=== PATIENT | male | born 1955 | race Caucasian/White ===

== ENCOUNTER 2021-08-12 12:56 | Inpatient (IN) ==
[2021-08-12] MEDS ORDERED: Nitroglycerin 0.4 MG TAB.SUBL SL PRN (13:30)
[2021-08-12] MEDS: Furosemide 20 MG TABLET PO SCH (15:50)
[2021-08-12] MEDS: Nicotine 21 MG PATCH.TD24 TD SCH (15:50)
[2021-08-12] MEDS: Metoprolol XL (24 HR) Succ 50 MG TAB.ER.24H PO SCH (20:04)
[2021-08-12] MEDS: *HR* Rivaroxaban 10 MG TABLET PO SCH (20:05)
[2021-08-13 06:23] LABS: Basophils # 0.1 K/mcL (0.0-0.2); Basophils % 0.9 %; Eosinophils # 0.1 K/mcL (0.0-0.6); Eosinophils % 1.5 %; Hemoglobin 14.6 g/dL (12.9-16.9); Immature Granulocytes % 0.4 % (0-4); Lymphocytes % 24.4 %; Mean Corpuscular HGB Conc 34.8 g/dL (31.6-35.5); Mean Corpuscular Hemoglobin 33.2 pg (28.0-33.3); Mean Corpuscular Volume 95.5 fL (83.0-100.0); Mean Platelet Volume 11.2 fL (9.4-12.4); Monocytes # 0.8 K/mcL (0.0-1.3); Monocytes % 9.5 %; Neutrophils # 5.1 K/mcL (1.6-8.9); Platelet Count 259 K/mcL (140-400); Red Cell Distribution Width 13.7 % (11.5-14.5); Segmented Neutrophils % 63.3 %
[2021-08-13 06:53] LABS: BUN/Creatinine Ratio 16 (6-26); Blood Urea Nitrogen 17 mg/dL (8-23); Calcium 8.5 mg/dL (8.6-10.3); Carbon Dioxide 23 mEq/L (23-29); Chloride 106 mEq/L (98-107); Glucose 103 mg/dL (70-105); Osmolality,Calculated 286 (280-300); Potassium 3.2 mEq/L (3.5-5.1); Sodium 137 mEq/L (136-145); eGFR For African Americans > 60 (> 60); eGFR For Non-African Americans > 60 (> 60)
[2021-08-13] MEDS: Furosemide 20 MG TABLET PO SCH (08:33)
[2021-08-13] MEDS: Vitamin B Complex/Vit C/Vit E 1 EACH TABLET PO SCH (08:34)
[2021-08-13] MEDS: FLUoxetine 20 MG CAPSULE PO SCH (08:34)
[2021-08-13] MEDS: Aspirin Enteric Coated 81 MG Tablet PO SCH (08:34)
[2021-08-13] MEDS: Folic Acid 1 MG TABLET PO SCH (08:34)
[2021-08-13] MEDS: Thiamine (B-1) 100 MG TABLET PO SCH (08:34)
[2021-08-13] MEDS: Nicotine 21 MG PATCH.TD24 TD SCH ×2 (08:34→09:17)
[2021-08-13] MEDS: Metoprolol XL (24 HR) Succ 50 MG TAB.ER.24H PO SCH ×2 (08:34→20:41)
[2021-08-13] MEDS: Cholecalciferol (D-3) 1,000 UNIT (25MCG) TABLET PO SCH (08:34)
[2021-08-13] MEDS: Isosorbide MONOnitrate (24 HR) 60 MG TAB.ER.24H PO SCH (08:34)
[2021-08-13] MEDS: *HR* Rivaroxaban 10 MG TABLET PO SCH (20:42)
[2021-08-14] MEDS: Furosemide 20 MG TABLET PO SCH (08:23)
[2021-08-14] MEDS: Thiamine (B-1) 100 MG TABLET PO SCH (08:23)
[2021-08-14] MEDS: Vitamin B Complex/Vit C/Vit E 1 EACH TABLET PO SCH (08:23)
[2021-08-14] MEDS: Aspirin Enteric Coated 81 MG Tablet PO SCH (08:23)
[2021-08-14] MEDS: Cholecalciferol (D-3) 1,000 UNIT (25MCG) TABLET PO SCH (08:23)
[2021-08-14] MEDS: Isosorbide MONOnitrate (24 HR) 60 MG TAB.ER.24H PO SCH (08:23)
[2021-08-14] MEDS: Folic Acid 1 MG TABLET PO SCH (08:24)
[2021-08-14] MEDS: Nicotine 21 MG PATCH.TD24 TD SCH (08:24)
[2021-08-14] MEDS: Metoprolol XL (24 HR) Succ 50 MG TAB.ER.24H PO SCH ×2 (08:24→21:02)
[2021-08-14] MEDS: FLUoxetine 20 MG CAPSULE PO SCH (08:24)
[2021-08-14] MEDS: *HR* Rivaroxaban 10 MG TABLET PO SCH (21:02)
[2021-08-15 05:15] LABS: Basophils # 0.1 K/mcL (0.0-0.2); Basophils % 0.8 %; Eosinophils # 0.2 K/mcL (0.0-0.6); Eosinophils % 1.9 %; Hematocrit 42.4 % (37.5-50.1); Hemoglobin 14.3 g/dL (12.9-16.9); Immature Granulocytes % 0.2 % (0-4); Lymphocytes % 24.2 %; Mean Corpuscular HGB Conc 33.7 g/dL (31.6-35.5); Mean Corpuscular Hemoglobin 32.5 pg (28.0-33.3); Mean Corpuscular Volume 96.4 fL (83.0-100.0); Mean Platelet Volume 11.2 fL (9.4-12.4); Monocytes # 0.8 K/mcL (0.0-1.3); Monocytes % 9.6 %; Neutrophils # 5.3 K/mcL (1.6-8.9); Platelet Count 248 K/mcL (140-400); Red Cell Distribution Width 13.6 % (11.5-14.5); Segmented Neutrophils % 63.3 %; White Blood Count 8.3 K/mcL (4.3-11.1)
[2021-08-15 05:33] LABS: Alanine Aminotransferase 28 Units/L (7-52); Albumin 3.4 g/dL (3.5-5.7); Albumin/Globulin Ratio 1.2 (1.1-2.2); Alkaline Phosphatase 105 Units/L (34-104); Aspartate Amino Transferase 24 Units/L (13-39); BUN/Creatinine Ratio 15 (6-26); Bilirubin,Total 0.8 mg/dL (0.3-1.0); Blood Urea Nitrogen 16 mg/dL (8-23); Calcium 8.7 mg/dL (8.6-10.3); Carbon Dioxide 25 mEq/L (23-29); Chloride 107 mEq/L (98-107); Globulin 2.9 g/dL (2.4-3.5); Glucose 97 mg/dL (70-105); Osmolality,Calculated 289 (280-300); Potassium 3.6 mEq/L (3.5-5.1); Sodium 139 mEq/L (136-145); Total Protein 6.3 g/dL (6.4-8.9); eGFR For African Americans > 60 (> 60); eGFR For Non-African Americans > 60 (> 60)
[2021-08-15] MEDS: Cholecalciferol (D-3) 1,000 UNIT (25MCG) TABLET PO SCH (08:44)
[2021-08-15] MEDS: FLUoxetine 20 MG CAPSULE PO SCH (08:44)
[2021-08-15] MEDS: Vitamin B Complex/Vit C/Vit E 1 EACH TABLET PO SCH (08:44)
[2021-08-15] MEDS: Metoprolol XL (24 HR) Succ 50 MG TAB.ER.24H PO SCH ×2 (08:44→20:06)
[2021-08-15] MEDS: Folic Acid 1 MG TABLET PO SCH (08:44)
[2021-08-15] MEDS: Isosorbide MONOnitrate (24 HR) 60 MG TAB.ER.24H PO SCH (08:44)
[2021-08-15] MEDS: Aspirin Enteric Coated 81 MG Tablet PO SCH (08:44)
[2021-08-15] MEDS: Furosemide 20 MG TABLET PO SCH (08:45)
[2021-08-15] MEDS: Thiamine (B-1) 100 MG TABLET PO SCH (08:45)
[2021-08-15] MEDS: Nicotine 21 MG PATCH.TD24 TD SCH (08:45)
[2021-08-15] MEDS: *HR* Rivaroxaban 10 MG TABLET PO SCH (20:06)
[2021-08-16] MEDS: Vitamin B Complex/Vit C/Vit E 1 EACH TABLET PO SCH (08:26)
[2021-08-16] MEDS: Furosemide 20 MG TABLET PO SCH (08:26)
[2021-08-16] MEDS: FLUoxetine 20 MG CAPSULE PO SCH (08:26)
[2021-08-16] MEDS: Thiamine (B-1) 100 MG TABLET PO SCH (08:26)
[2021-08-16] MEDS: Isosorbide MONOnitrate (24 HR) 60 MG TAB.ER.24H PO SCH (08:26)
[2021-08-16] MEDS: Aspirin Enteric Coated 81 MG Tablet PO SCH (08:26)
[2021-08-16] MEDS: Folic Acid 1 MG TABLET PO SCH (08:27)
[2021-08-16] MEDS: Metoprolol XL (24 HR) Succ 50 MG TAB.ER.24H PO SCH ×2 (08:27→20:28)
[2021-08-16] MEDS: Cholecalciferol (D-3) 1,000 UNIT (25MCG) TABLET PO SCH (08:27)
[2021-08-16] MEDS: Nicotine 21 MG PATCH.TD24 TD SCH (08:27)
[2021-08-16] MEDS: *HR* HYDROcodone/Acet 5/325 mg TABLET PO PRN ×2 (11:10→20:30)
[2021-08-16] MEDS: *HR* Rivaroxaban 10 MG TABLET PO SCH (20:28)
[2021-08-17] MEDS: FLUoxetine 20 MG CAPSULE PO SCH (07:37)
[2021-08-17] MEDS: Aspirin Enteric Coated 81 MG Tablet PO SCH (07:37)
[2021-08-17] MEDS: Furosemide 20 MG TABLET PO SCH (07:37)
[2021-08-17] MEDS: Thiamine (B-1) 100 MG TABLET PO SCH (07:37)
[2021-08-17] MEDS: Isosorbide MONOnitrate (24 HR) 60 MG TAB.ER.24H PO SCH (07:37)
[2021-08-17] MEDS: Cholecalciferol (D-3) 1,000 UNIT (25MCG) TABLET PO SCH (07:37)
[2021-08-17] MEDS: Vitamin B Complex/Vit C/Vit E 1 EACH TABLET PO SCH (07:37)
[2021-08-17] MEDS: Metoprolol XL (24 HR) Succ 50 MG TAB.ER.24H PO SCH ×2 (07:38→20:24)
[2021-08-17] MEDS: Folic Acid 1 MG TABLET PO SCH (07:38)
[2021-08-17] MEDS: Nicotine 21 MG PATCH.TD24 TD SCH (12:06)
[2021-08-17] MEDS: *HR* HYDROcodone/Acet 5/325 mg TABLET PO PRN (14:43)
[2021-08-17] MEDS: *HR* Rivaroxaban 10 MG TABLET PO SCH (20:24)
[2021-08-18] MEDS: Metoprolol XL (24 HR) Succ 50 MG TAB.ER.24H PO SCH ×2 (08:33→20:46)
[2021-08-18] MEDS: Cholecalciferol (D-3) 1,000 UNIT (25MCG) TABLET PO SCH (08:33)
[2021-08-18] MEDS: Isosorbide MONOnitrate (24 HR) 60 MG TAB.ER.24H PO SCH (08:33)
[2021-08-18] MEDS: Vitamin B Complex/Vit C/Vit E 1 EACH TABLET PO SCH (08:34)
[2021-08-18] MEDS: Aspirin Enteric Coated 81 MG Tablet PO SCH (08:34)
[2021-08-18] MEDS: FLUoxetine 20 MG CAPSULE PO SCH (08:34)
[2021-08-18] MEDS: Furosemide 20 MG TABLET PO SCH (08:34)
[2021-08-18] MEDS: Nicotine 21 MG PATCH.TD24 TD SCH (08:34)
[2021-08-18] MEDS: Folic Acid 1 MG TABLET PO SCH (08:34)
[2021-08-18] MEDS: Thiamine (B-1) 100 MG TABLET PO SCH (08:34)
[2021-08-18] MEDS: *HR* HYDROcodone/Acet 5/325 mg TABLET PO PRN (10:56)
[2021-08-18] MEDS: Sennosides/Docusate Sodium TABLET PO SCH ×2 (12:39→20:46)
[2021-08-18] MEDS: polyethylene glycoL 3350 17 GM POWD.PACK PO SCH (14:43)
[2021-08-18] MEDS: *HR* Rivaroxaban 10 MG TABLET PO SCH (20:46)
[2021-08-19 06:01] LABS: Hematocrit 40.2 % (37.5-50.1); Hemoglobin 13.7 g/dL (12.9-16.9); Mean Corpuscular HGB Conc 34.1 g/dL (31.6-35.5); Mean Corpuscular Hemoglobin 32.8 pg (28.0-33.3); Mean Corpuscular Volume 96.2 fL (83.0-100.0); Mean Platelet Volume 10.9 fL (9.4-12.4); Platelet Count 228 K/mcL (140-400); Red Blood Count 4.18 M/mcL (4.19-5.50); Red Cell Distribution Width 13.7 % (11.5-14.5); White Blood Count 9.2 K/mcL (4.3-11.1)
[2021-08-19 06:23] LABS: Alanine Aminotransferase 24 Units/L (7-52); Albumin 3.3 g/dL (3.5-5.7); Albumin/Globulin Ratio 1.1 (1.1-2.2); Alkaline Phosphatase 90 Units/L (34-104); Aspartate Amino Transferase 15 Units/L (13-39); BUN/Creatinine Ratio 18 (6-26); Bilirubin,Total 0.5 mg/dL (0.3-1.0); Blood Urea Nitrogen 18 mg/dL (8-23); Calcium 8.7 mg/dL (8.6-10.3); Carbon Dioxide 25 mEq/L (23-29); Chloride 107 mEq/L (98-107); Globulin 3.1 g/dL (2.4-3.5); Glucose 110 mg/dL (70-105); Osmolality,Calculated 295 (280-300); Potassium 3.4 mEq/L (3.5-5.1); Sodium 141 mEq/L (136-145); Total Protein 6.4 g/dL (6.4-8.9); eGFR For African Americans > 60 (> 60); eGFR For Non-African Americans > 60 (> 60)
[2021-08-19] MEDS: Vitamin B Complex/Vit C/Vit E 1 EACH TABLET PO SCH (08:19)
[2021-08-19] MEDS: Isosorbide MONOnitrate (24 HR) 60 MG TAB.ER.24H PO SCH (08:19)
[2021-08-19] MEDS: Furosemide 20 MG TABLET PO SCH (08:19)
[2021-08-19] MEDS: Thiamine (B-1) 100 MG TABLET PO SCH (08:19)
[2021-08-19] MEDS: Aspirin Enteric Coated 81 MG Tablet PO SCH (08:19)
[2021-08-19] MEDS: Cholecalciferol (D-3) 1,000 UNIT (25MCG) TABLET PO SCH (08:19)
[2021-08-19] MEDS: Sennosides/Docusate Sodium TABLET PO SCH ×2 (08:19→20:54)
[2021-08-19] MEDS: Metoprolol XL (24 HR) Succ 50 MG TAB.ER.24H PO SCH ×2 (08:19→20:54)
[2021-08-19] MEDS: FLUoxetine 20 MG CAPSULE PO SCH (08:19)
[2021-08-19] MEDS: Folic Acid 1 MG TABLET PO SCH (08:20)
[2021-08-19] MEDS: Nicotine 21 MG PATCH.TD24 TD SCH (08:20)
[2021-08-19] MEDS: polyethylene glycoL 3350 17 GM POWD.PACK PO SCH (08:20)
[2021-08-19] MEDS: *HR* Rivaroxaban 10 MG TABLET PO SCH (20:53)
[2021-08-20] MEDS: Vitamin B Complex/Vit C/Vit E 1 EACH TABLET PO SCH (09:05)
[2021-08-20] MEDS: Aspirin Enteric Coated 81 MG Tablet PO SCH (09:05)
[2021-08-20] MEDS: Thiamine (B-1) 100 MG TABLET PO SCH (09:05)
[2021-08-20] MEDS: Cholecalciferol (D-3) 1,000 UNIT (25MCG) TABLET PO SCH (09:05)
[2021-08-20] MEDS: FLUoxetine 20 MG CAPSULE PO SCH (09:05)
[2021-08-20] MEDS: Folic Acid 1 MG TABLET PO SCH (09:05)
[2021-08-20] MEDS: Nicotine 21 MG PATCH.TD24 TD SCH (09:06)
[2021-08-20] MEDS: Furosemide 20 MG TABLET PO SCH (09:06)
[2021-08-20] MEDS: Sennosides/Docusate Sodium TABLET PO SCH ×2 (09:06→20:22)
[2021-08-20] MEDS: polyethylene glycoL 3350 17 GM POWD.PACK PO SCH (09:06)
[2021-08-20] MEDS: Isosorbide MONOnitrate (24 HR) 60 MG TAB.ER.24H PO SCH (09:13)
[2021-08-20] MEDS: Metoprolol XL (24 HR) Succ 50 MG TAB.ER.24H PO SCH ×2 (09:13→20:21)
[2021-08-20] MEDS: *HR* Rivaroxaban 10 MG TABLET PO SCH (20:22)
[2021-08-20 23:04] LABS: Bilirubin,Urine Negative (Negative); Blood,Urine Trace-intact (Negative); Clarity,Urine Clear (Clear); Color,Urine Yellow (Yellow); Glucose,Urine (UA) Normal (Normal); Ketones,Urine Trace mg/dL (Negative); Leukocyte Esterase,Urine Negative (Negative); Nitrite,Urine Negative (Negative); PH,Urine 5.5 pH Units (5.0-8.0); Protein,Urine Negative (Neg-Trace); Urobilinogen,Urine Normal (Normal)
[2021-08-21] MEDS: Metoprolol XL (24 HR) Succ 50 MG TAB.ER.24H PO SCH ×2 (08:32→21:26)
[2021-08-21] MEDS: FLUoxetine 20 MG CAPSULE PO SCH (08:32)
[2021-08-21] MEDS: Cholecalciferol (D-3) 1,000 UNIT (25MCG) TABLET PO SCH (08:32)
[2021-08-21] MEDS: Thiamine (B-1) 100 MG TABLET PO SCH (08:33)
[2021-08-21] MEDS: Sennosides/Docusate Sodium TABLET PO SCH ×2 (08:33→21:26)
[2021-08-21] MEDS: Isosorbide MONOnitrate (24 HR) 60 MG TAB.ER.24H PO SCH (08:33)
[2021-08-21] MEDS: Furosemide 20 MG TABLET PO SCH (08:33)
[2021-08-21] MEDS: Aspirin Enteric Coated 81 MG Tablet PO SCH (08:34)
[2021-08-21] MEDS: Nicotine 21 MG PATCH.TD24 TD SCH (08:34)
[2021-08-21] MEDS: Vitamin B Complex/Vit C/Vit E 1 EACH TABLET PO SCH (08:34)
[2021-08-21] MEDS: polyethylene glycoL 3350 17 GM POWD.PACK PO SCH (08:34)
[2021-08-21] MEDS: Folic Acid 1 MG TABLET PO SCH (08:34)
[2021-08-21] MEDS: *HR* Rivaroxaban 10 MG TABLET PO SCH (21:26)
[2021-08-22 04:58] LABS: Hematocrit 40.5 % (37.5-50.1); Hemoglobin 13.7 g/dL (12.9-16.9); Mean Corpuscular HGB Conc 33.8 g/dL (31.6-35.5); Mean Corpuscular Hemoglobin 32.3 pg (28.0-33.3); Mean Corpuscular Volume 95.5 fL (83.0-100.0); Mean Platelet Volume 10.7 fL (9.4-12.4); Platelet Count 227 K/mcL (140-400); Red Blood Count 4.24 M/mcL (4.19-5.50); Red Cell Distribution Width 13.4 % (11.5-14.5); White Blood Count 9.3 K/mcL (4.3-11.1)
[2021-08-22 05:18] LABS: BUN/Creatinine Ratio 17 (6-26); Blood Urea Nitrogen 17 mg/dL (8-23); Calcium 9.1 mg/dL (8.6-10.3); Carbon Dioxide 27 mEq/L (23-29); Chloride 103 mEq/L (98-107); Glucose 110 mg/dL (70-105); Magnesium 2.4 mg/dL (1.6-2.6); Osmolality,Calculated 286 (280-300); Potassium 3.8 mEq/L (3.5-5.1); Sodium 137 mEq/L (136-145); eGFR For African Americans > 60 (> 60); eGFR For Non-African Americans > 60 (> 60)
[2021-08-22] MEDS: Folic Acid 1 MG TABLET PO SCH (07:50)
[2021-08-22] MEDS: Furosemide 20 MG TABLET PO SCH (07:51)
[2021-08-22] MEDS: FLUoxetine 20 MG CAPSULE PO SCH (07:51)
[2021-08-22] MEDS: Sennosides/Docusate Sodium TABLET PO SCH ×2 (07:51→20:39)
[2021-08-22] MEDS: Aspirin Enteric Coated 81 MG Tablet PO SCH (07:51)
[2021-08-22] MEDS: Metoprolol XL (24 HR) Succ 50 MG TAB.ER.24H PO SCH ×2 (07:51→20:39)
[2021-08-22] MEDS: Vitamin B Complex/Vit C/Vit E 1 EACH TABLET PO SCH (07:51)
[2021-08-22] MEDS: Cholecalciferol (D-3) 1,000 UNIT (25MCG) TABLET PO SCH (07:51)
[2021-08-22] MEDS: Isosorbide MONOnitrate (24 HR) 60 MG TAB.ER.24H PO SCH (07:51)
[2021-08-22] MEDS: polyethylene glycoL 3350 17 GM POWD.PACK PO SCH (07:52)
[2021-08-22] MEDS: Nicotine 21 MG PATCH.TD24 TD SCH (07:52)
[2021-08-22] MEDS: Thiamine (B-1) 100 MG TABLET PO SCH (07:52)
[2021-08-22] MEDS: *HR* Rivaroxaban 10 MG TABLET PO SCH (20:39)
[2021-08-23] MEDS: Aspirin Enteric Coated 81 MG Tablet PO SCH (07:43)
[2021-08-23] MEDS: FLUoxetine 20 MG CAPSULE PO SCH (07:43)
[2021-08-23] MEDS: Furosemide 20 MG TABLET PO SCH (07:43)
[2021-08-23] MEDS: Metoprolol XL (24 HR) Succ 50 MG TAB.ER.24H PO SCH ×2 (07:43→21:25)
[2021-08-23] MEDS: Folic Acid 1 MG TABLET PO SCH (07:43)
[2021-08-23] MEDS: Vitamin B Complex/Vit C/Vit E 1 EACH TABLET PO SCH (07:43)
[2021-08-23] MEDS: Thiamine (B-1) 100 MG TABLET PO SCH (07:43)
[2021-08-23] MEDS: Cholecalciferol (D-3) 1,000 UNIT (25MCG) TABLET PO SCH (07:43)
[2021-08-23] MEDS: Isosorbide MONOnitrate (24 HR) 60 MG TAB.ER.24H PO SCH (07:43)
[2021-08-23] MEDS: Sennosides/Docusate Sodium TABLET PO SCH ×2 (07:43→21:26)
[2021-08-23] MEDS: Nicotine 21 MG PATCH.TD24 TD SCH (10:30)
[2021-08-23] MEDS: polyethylene glycoL 3350 17 GM POWD.PACK PO SCH (10:30)
[2021-08-23] MEDS: *HR* Rivaroxaban 10 MG TABLET PO SCH (21:26)
[2021-08-24] MEDS: polyethylene glycoL 3350 17 GM POWD.PACK PO SCH (07:58)
[2021-08-24] MEDS: Furosemide 20 MG TABLET PO SCH (07:58)
[2021-08-24] MEDS: Vitamin B Complex/Vit C/Vit E 1 EACH TABLET PO SCH (07:59)
[2021-08-24] MEDS: Metoprolol XL (24 HR) Succ 50 MG TAB.ER.24H PO SCH ×2 (07:59→21:27)
[2021-08-24] MEDS: Cholecalciferol (D-3) 1,000 UNIT (25MCG) TABLET PO SCH (07:59)
[2021-08-24] MEDS: Sennosides/Docusate Sodium TABLET PO SCH ×2 (07:59→21:26)
[2021-08-24] MEDS: Aspirin Enteric Coated 81 MG Tablet PO SCH (07:59)
[2021-08-24] MEDS: Folic Acid 1 MG TABLET PO SCH (07:59)
[2021-08-24] MEDS: Thiamine (B-1) 100 MG TABLET PO SCH (07:59)
[2021-08-24] MEDS: Nicotine 21 MG PATCH.TD24 TD SCH (07:59)
[2021-08-24] MEDS: Isosorbide MONOnitrate (24 HR) 60 MG TAB.ER.24H PO SCH (07:59)
[2021-08-24] MEDS: FLUoxetine 20 MG CAPSULE PO SCH (07:59)
[2021-08-24] MEDS: *HR* Rivaroxaban 10 MG TABLET PO SCH (21:27)
[2021-08-25] MEDS: Nicotine 21 MG PATCH.TD24 TD SCH (09:44)
[2021-08-25] MEDS: Vitamin B Complex/Vit C/Vit E 1 EACH TABLET PO SCH (09:45)
[2021-08-25] MEDS: FLUoxetine 20 MG CAPSULE PO SCH (09:45)
[2021-08-25] MEDS: Isosorbide MONOnitrate (24 HR) 60 MG TAB.ER.24H PO SCH (09:45)
[2021-08-25] MEDS: Cholecalciferol (D-3) 1,000 UNIT (25MCG) TABLET PO SCH (09:45)
[2021-08-25] MEDS: polyethylene glycoL 3350 17 GM POWD.PACK PO SCH (09:45)
[2021-08-25] MEDS: Folic Acid 1 MG TABLET PO SCH (09:45)
[2021-08-25] MEDS: Thiamine (B-1) 100 MG TABLET PO SCH (09:45)
[2021-08-25] MEDS: Metoprolol XL (24 HR) Succ 50 MG TAB.ER.24H PO SCH ×2 (09:45→21:26)
[2021-08-25] MEDS: Furosemide 20 MG TABLET PO SCH (09:45)
[2021-08-25] MEDS: Sennosides/Docusate Sodium TABLET PO SCH ×2 (09:45→21:16)
[2021-08-25] MEDS: Aspirin Enteric Coated 81 MG Tablet PO SCH (09:45)
[2021-08-25] MEDS: *HR* Rivaroxaban 10 MG TABLET PO SCH (21:16)
[2021-08-26] MEDS: polyethylene glycoL 3350 17 GM POWD.PACK PO SCH (09:31)
[2021-08-26] MEDS: Cholecalciferol (D-3) 1,000 UNIT (25MCG) TABLET PO SCH (09:31)
[2021-08-26] MEDS: Isosorbide MONOnitrate (24 HR) 60 MG TAB.ER.24H PO SCH (09:32)
[2021-08-26] MEDS: Vitamin B Complex/Vit C/Vit E 1 EACH TABLET PO SCH (09:32)
[2021-08-26] MEDS: Metoprolol XL (24 HR) Succ 50 MG TAB.ER.24H PO SCH ×2 (09:32→21:24)
[2021-08-26] MEDS: Furosemide 20 MG TABLET PO SCH (09:32)
[2021-08-26] MEDS: Thiamine (B-1) 100 MG TABLET PO SCH (09:32)
[2021-08-26] MEDS: Sennosides/Docusate Sodium TABLET PO SCH ×2 (09:33→21:24)
[2021-08-26] MEDS: Aspirin Enteric Coated 81 MG Tablet PO SCH (09:33)
[2021-08-26] MEDS: Folic Acid 1 MG TABLET PO SCH (09:33)
[2021-08-26] MEDS: FLUoxetine 20 MG CAPSULE PO SCH (09:33)
[2021-08-26] MEDS: Nicotine 21 MG PATCH.TD24 TD SCH (09:34)
[2021-08-26] MEDS: *HR* Rivaroxaban 10 MG TABLET PO SCH (21:24)
[2021-08-27 06:02] LABS: Hematocrit 40.3 % (37.5-50.1); Hemoglobin 13.5 g/dL (12.9-16.9); Mean Corpuscular HGB Conc 33.5 g/dL (31.6-35.5); Mean Corpuscular Hemoglobin 32.5 pg (28.0-33.3); Mean Corpuscular Volume 96.9 fL (83.0-100.0); Platelet Count 277 K/mcL (140-400); Red Blood Count 4.16 M/mcL (4.19-5.50); Red Cell Distribution Width 13.2 % (11.5-14.5)
[2021-08-27 06:25] LABS: Alanine Aminotransferase 26 Units/L (7-52); Albumin 3.1 g/dL (3.5-5.7); Albumin/Globulin Ratio 0.9 (1.1-2.2); Alkaline Phosphatase 79 Units/L (34-104); Aspartate Amino Transferase 19 Units/L (13-39); BUN/Creatinine Ratio 21 (6-26); Bilirubin,Total 0.5 mg/dL (0.3-1.0); Blood Urea Nitrogen 21 mg/dL (8-23); Calcium 9.4 mg/dL (8.6-10.3); Carbon Dioxide 27 mEq/L (23-29); Chloride 102 mEq/L (98-107); Globulin 3.4 g/dL (2.4-3.5); Glucose 105 mg/dL (70-105); Osmolality,Calculated 289 (280-300); Sodium 138 mEq/L (136-145); Total Protein 6.5 g/dL (6.4-8.9); eGFR For African Americans > 60 (> 60); eGFR For Non-African Americans > 60 (> 60)
[2021-08-27] MEDS: Aspirin Enteric Coated 81 MG Tablet PO SCH (08:14)
[2021-08-27] MEDS: Cholecalciferol (D-3) 1,000 UNIT (25MCG) TABLET PO SCH (08:14)
[2021-08-27] MEDS: Metoprolol XL (24 HR) Succ 50 MG TAB.ER.24H PO SCH ×2 (08:15→20:43)
[2021-08-27] MEDS: FLUoxetine 20 MG CAPSULE PO SCH (08:15)
[2021-08-27] MEDS: Thiamine (B-1) 100 MG TABLET PO SCH (08:15)
[2021-08-27] MEDS: Isosorbide MONOnitrate (24 HR) 60 MG TAB.ER.24H PO SCH (08:15)
[2021-08-27] MEDS: polyethylene glycoL 3350 17 GM POWD.PACK PO SCH (08:16)
[2021-08-27] MEDS: Folic Acid 1 MG TABLET PO SCH (08:16)
[2021-08-27] MEDS: Furosemide 20 MG TABLET PO SCH (08:16)
[2021-08-27] MEDS: Sennosides/Docusate Sodium TABLET PO SCH ×2 (08:16→20:35)
[2021-08-27] MEDS: Vitamin B Complex/Vit C/Vit E 1 EACH TABLET PO SCH (08:16)
[2021-08-27] MEDS: Nicotine 21 MG PATCH.TD24 TD SCH (08:16)
[2021-08-27] MEDS: Nystatin POWDER 30 GM BOTTLE TP SCH ×2 (15:35→20:43)
[2021-08-27] MEDS: *HR* HYDROcodone/Acet 5/325 mg TABLET PO PRN (20:43)
[2021-08-27] MEDS: *HR* Rivaroxaban 10 MG TABLET PO SCH (20:43)
[2021-08-28] MEDS: Furosemide 20 MG TABLET PO SCH (08:41)
[2021-08-28] MEDS: Thiamine (B-1) 100 MG TABLET PO SCH (08:41)
[2021-08-28] MEDS: Aspirin Enteric Coated 81 MG Tablet PO SCH (08:41)
[2021-08-28] MEDS: Cholecalciferol (D-3) 1,000 UNIT (25MCG) TABLET PO SCH (08:41)
[2021-08-28] MEDS: Vitamin B Complex/Vit C/Vit E 1 EACH TABLET PO SCH (08:41)
[2021-08-28] MEDS: Isosorbide MONOnitrate (24 HR) 60 MG TAB.ER.24H PO SCH (08:41)
[2021-08-28] MEDS: FLUoxetine 20 MG CAPSULE PO SCH (08:42)
[2021-08-28] MEDS: Folic Acid 1 MG TABLET PO SCH (08:42)
[2021-08-28] MEDS: Nicotine 21 MG PATCH.TD24 TD SCH (08:42)
[2021-08-28] MEDS: polyethylene glycoL 3350 17 GM POWD.PACK PO SCH (08:42)
[2021-08-28] MEDS: Metoprolol XL (24 HR) Succ 50 MG TAB.ER.24H PO SCH ×2 (08:42→19:16)
[2021-08-28] MEDS: Sennosides/Docusate Sodium TABLET PO SCH ×2 (08:42→19:15)
[2021-08-28] MEDS: Nystatin POWDER 30 GM BOTTLE TP SCH (08:43)
[2021-08-28] MEDS ORDERED: Clotrimazole 1% CRM 15 GM TUBE TP SCH (14:30)
[2021-08-28] MEDS ORDERED: Nystatin POWDER 30 GM BOTTLE TP SCH (15:00)
[2021-08-28] MEDS: Clotrimazole 1% CRM 15 GM TUBE TP SCH ×2 (16:09→19:16)
[2021-08-28] MEDS: *HR* HYDROcodone/Acet 5/325 mg TABLET PO PRN (19:16)
[2021-08-28] MEDS: *HR* Rivaroxaban 10 MG TABLET PO SCH (19:16)
[2021-08-29] MEDS: Sennosides/Docusate Sodium TABLET PO SCH ×2 (08:32→19:59)
[2021-08-29] MEDS: Aspirin Enteric Coated 81 MG Tablet PO SCH (08:32)
[2021-08-29] MEDS: Folic Acid 1 MG TABLET PO SCH (08:33)
[2021-08-29] MEDS: Vitamin B Complex/Vit C/Vit E 1 EACH TABLET PO SCH (08:33)
[2021-08-29] MEDS: Isosorbide MONOnitrate (24 HR) 60 MG TAB.ER.24H PO SCH (08:33)
[2021-08-29] MEDS: Thiamine (B-1) 100 MG TABLET PO SCH (08:33)
[2021-08-29] MEDS: FLUoxetine 20 MG CAPSULE PO SCH (08:33)
[2021-08-29] MEDS: Metoprolol XL (24 HR) Succ 50 MG TAB.ER.24H PO SCH ×2 (08:33→19:58)
[2021-08-29] MEDS: Furosemide 20 MG TABLET PO SCH (08:33)
[2021-08-29] MEDS: Clotrimazole 1% CRM 15 GM TUBE TP SCH ×2 (08:34→20:00)
[2021-08-29] MEDS: polyethylene glycoL 3350 17 GM POWD.PACK PO SCH (08:34)
[2021-08-29] MEDS: Nicotine 21 MG PATCH.TD24 TD SCH (08:34)
[2021-08-29] MEDS: Cholecalciferol (D-3) 1,000 UNIT (25MCG) TABLET PO SCH (08:34)
[2021-08-29] MEDS: *HR* Rivaroxaban 10 MG TABLET PO SCH (19:59)
[2021-08-29] MEDS: *HR* HYDROcodone/Acet 5/325 mg TABLET PO PRN (19:59)
[2021-08-30] MEDS: Cholecalciferol (D-3) 1,000 UNIT (25MCG) TABLET PO SCH (09:43)
[2021-08-30] MEDS: Aspirin Enteric Coated 81 MG Tablet PO SCH (09:43)
[2021-08-30] MEDS: Vitamin B Complex/Vit C/Vit E 1 EACH TABLET PO SCH (09:43)
[2021-08-30] MEDS: Thiamine (B-1) 100 MG TABLET PO SCH (09:44)
[2021-08-30] MEDS: Isosorbide MONOnitrate (24 HR) 60 MG TAB.ER.24H PO SCH (09:44)
[2021-08-30] MEDS: Folic Acid 1 MG TABLET PO SCH (09:44)
[2021-08-30] MEDS: Furosemide 20 MG TABLET PO SCH (09:44)
[2021-08-30] MEDS: Metoprolol XL (24 HR) Succ 50 MG TAB.ER.24H PO SCH ×2 (09:45→22:56)
[2021-08-30] MEDS: Sennosides/Docusate Sodium TABLET PO SCH ×2 (09:45→22:57)
[2021-08-30] MEDS: FLUoxetine 20 MG CAPSULE PO SCH (09:45)
[2021-08-30] MEDS: Clotrimazole 1% CRM 15 GM TUBE TP SCH ×2 (09:45→22:57)
[2021-08-30] MEDS: Nicotine 21 MG PATCH.TD24 TD SCH (09:45)
[2021-08-30] MEDS: polyethylene glycoL 3350 17 GM POWD.PACK PO SCH (09:45)
[2021-08-30] MEDS: *HR* Rivaroxaban 10 MG TABLET PO SCH (22:57)
[2021-08-31] MEDS: Isosorbide MONOnitrate (24 HR) 60 MG TAB.ER.24H PO SCH (08:55)
[2021-08-31] MEDS: Metoprolol XL (24 HR) Succ 50 MG TAB.ER.24H PO SCH ×2 (08:56→20:50)
[2021-08-31] MEDS: Aspirin Enteric Coated 81 MG Tablet PO SCH (08:56)
[2021-08-31] MEDS: Clotrimazole 1% CRM 15 GM TUBE TP SCH ×2 (08:56→20:51)
[2021-08-31] MEDS: FLUoxetine 20 MG CAPSULE PO SCH (08:56)
[2021-08-31] MEDS: Furosemide 20 MG TABLET PO SCH (08:56)
[2021-08-31] MEDS: Nicotine 21 MG PATCH.TD24 TD SCH (08:56)
[2021-08-31] MEDS: Folic Acid 1 MG TABLET PO SCH (08:56)
[2021-08-31] MEDS: Vitamin B Complex/Vit C/Vit E 1 EACH TABLET PO SCH (08:56)
[2021-08-31] MEDS: Sennosides/Docusate Sodium TABLET PO SCH ×2 (08:56→20:49)
[2021-08-31] MEDS: Thiamine (B-1) 100 MG TABLET PO SCH (08:56)
[2021-08-31] MEDS: Cholecalciferol (D-3) 1,000 UNIT (25MCG) TABLET PO SCH (08:56)
[2021-08-31] MEDS: polyethylene glycoL 3350 17 GM POWD.PACK PO SCH (08:57)
[2021-08-31] MEDS: *HR* Rivaroxaban 10 MG TABLET PO SCH (20:49)
[2021-09-01 07:23] LABS: Hematocrit 38.4 % (37.5-50.1); Hemoglobin 12.8 g/dL (12.9-16.9); Mean Corpuscular HGB Conc 33.3 g/dL (31.6-35.5); Mean Corpuscular Hemoglobin 32.1 pg (28.0-33.3); Mean Corpuscular Volume 96.2 fL (83.0-100.0); Platelet Count 354 K/mcL (140-400); Red Blood Count 3.99 M/mcL (4.19-5.50); Red Cell Distribution Width 13.2 % (11.5-14.5); White Blood Count 11.7 K/mcL (4.3-11.1)
[2021-09-01 07:33] VITALS: BP 139/84; PULSE 72; RESP 18; TEMP 98.5; O2SAT 99
[2021-09-01 08:03] LABS: Alanine Aminotransferase 21 Units/L (7-52); Albumin 3.1 g/dL (3.5-5.7); Albumin/Globulin Ratio 0.9 (1.1-2.2); Alkaline Phosphatase 73 Units/L (34-104); Aspartate Amino Transferase 19 Units/L (13-39); BUN/Creatinine Ratio 23 (6-26); Bilirubin,Total 0.5 mg/dL (0.3-1.0); Blood Urea Nitrogen 23 mg/dL (8-23); Calcium 9.3 mg/dL (8.6-10.3); Carbon Dioxide 29 mEq/L (23-29); Chloride 101 mEq/L (98-107); Globulin 3.4 g/dL (2.4-3.5); Glucose 105 mg/dL (70-105); Magnesium 1.9 mg/dL (1.6-2.6); Osmolality,Calculated 290 (280-300); Potassium 4.2 mEq/L (3.5-5.1); Sodium 138 mEq/L (136-145); Total Protein 6.5 g/dL (6.4-8.9); eGFR For African Americans > 60 (> 60); eGFR For Non-African Americans > 60 (> 60)
[2021-09-01] MEDS: Thiamine (B-1) 100 MG TABLET PO SCH (08:04)
[2021-09-01] MEDS: Vitamin B Complex/Vit C/Vit E 1 EACH TABLET PO SCH (08:04)
[2021-09-01] MEDS: Aspirin Enteric Coated 81 MG Tablet PO SCH (08:04)
[2021-09-01] MEDS: Folic Acid 1 MG TABLET PO SCH (08:04)
[2021-09-01] MEDS: Isosorbide MONOnitrate (24 HR) 60 MG TAB.ER.24H PO SCH (08:04)
[2021-09-01] MEDS: Sennosides/Docusate Sodium TABLET PO SCH (08:04)
[2021-09-01] MEDS: Metoprolol XL (24 HR) Succ 50 MG TAB.ER.24H PO SCH (08:05)
[2021-09-01] MEDS: Furosemide 20 MG TABLET PO SCH (08:05)
[2021-09-01] MEDS: Cholecalciferol (D-3) 1,000 UNIT (25MCG) TABLET PO SCH (08:05)
[2021-09-01] MEDS: Nicotine 21 MG PATCH.TD24 TD SCH (08:05)
[2021-09-01] MEDS: FLUoxetine 20 MG CAPSULE PO SCH (08:05)
[2021-09-01] MEDS: Clotrimazole 1% CRM 15 GM TUBE TP SCH (08:06)
[2021-09-01] MEDS: polyethylene glycoL 3350 17 GM POWD.PACK PO SCH (08:06)
== END 2021-09-01 15:36 | disposition home health service (06) | DRG 65 ==
LOC: INPGRE 12:56
PROVIDERS: ADMIT Internal Medicine; ATTEND Internal Medicine